=== PATIENT | female | born 1965 | race Caucasian/White ===

== ENCOUNTER 2017-04-03 08:27 | Day surgery (SDC) | payer BC ==
[2017-04-01 08:43] LABS: ABSOLUTE EOSINOPHILS # (AUTO) 0.2 10^3/uL (0.0-0.6); ABSOLUTE LYMPHOCYTES (AUTO) 2.1 10^3/uL (0.5-4.7); ABSOLUTE MONOCYTES (AUTO) 0.9 10^3/uL (0.1-1.4); ABSOLUTE NEUT (AUTO) 4.6 10^3/uL (1.7-8.2); BASOPHILS % (AUTO) 0.5 % (0-2); EOSINOPHILS % (AUTO) 2.4 % (0-6); HEMATOCRIT 35.9 % (36.0-47.0); HEMOGLOBIN 11.8 g/dL (12.0-15.5); HGB HCT DIFFERENCE -0.5; MEAN CORPUSCULAR HEMOGLOBIN 31.4 pg (27.0-33.4); MEAN CORPUSCULAR HGB CONC 32.8 g/dL (32.0-36.0); MEAN CORPUSCULAR VOLUME 96 fl (80-97); MONOCYTES % (AUTO) 11.6 % (3-13); RED BLOOD COUNT 3.75 10^6/uL (3.72-5.28); RED CELL DISTRIBUTION WIDTH 15.1 % (11.5-14.0); SEGMENTED NEUTROPHILS % (AUTO) 58.5 % (42-78); WHITE BLOOD COUNT 7.8 10^3/uL (4.0-10.5)
[2017-04-01 09:06] LABS: ANION GAP 11 (5-19); BLOOD UREA NITROGEN 17 mg/dL (7-20); CALCIUM 9.7 mg/dL (8.4-10.2); CARBON DIOXIDE 32 mmol/L (22-30); CHLORIDE 102 mmol/L (98-107); CREATININE RESULT 0.74 mg/dL (0.52-1.25); GLUCOSE 92 mg/dL (75-110); POTASSIUM 4.5 mmol/L (3.6-5.0); SODIUM 145.4 mmol/L (137-145)
--- NOTE | 2017-04-01 09:08 | EKG REPORT ---
SEVERITY:- NORMAL ECG - SINUS RHYTHM : Confirmed by: Gary Gleason 01-Apr-2017 09:07:01
[2017-04-01 09:50] LABS: APPEARANCE,URINE CLEAR; BILIRUBIN,URINE NEGATIVE (NEGATIVE); GLUCOSE, URINE NEGATIVE (NEGATIVE); KETONES,URINE TRACE mg/dL (NEGATIVE); LEUKOCYTE ESTERASE,URINE NEGATIVE (NEGATIVE); NITRITE,URINE NEGATIVE (NEGATIVE); PROTEIN,URINE 30 mg/dL (NEGATIVE); URINE SPECIFIC GRAVITY 1.036; UROBILINOGEN,URINE NEGATIVE mg/dL (<2.0)
--- NOTE | 2017-04-01 10:38 | RADIOLOGY REPORT (SQ) ---
EXAM DESCRIPTION: CHEST PA/LATERAL COMPLETED DATE/TIME: 04/01/2017 9:47 am REASON FOR STUDY: PRE OP COMPARISON: 05/02/2016 EXAM PARAMETERS: NUMBER OF VIEWS: two views TECHNIQUE: Digital Frontal and Lateral radiographic views of the chest acquired. RADIATION DOSE: NA LIMITATIONS: none FINDINGS: LUNGS AND PLEURA: No opacities, masses or pneumothorax. No pleural effusion. MEDIASTINUM AND HILAR STRUCTURES: No masses or contour abnormalities. HEART AND VASCULAR STRUCTURES: Heart normal size. No evidence for failure. BONES: No acute findings. HARDWARE: None in the chest. OTHER: No other significant finding. IMPRESSION: NO SIGNIFICANT RADIOGRAPHIC FINDING IN THE CHEST. TECHNICAL DOCUMENTATION: JOB ID: [id number] [employer]- All Rights Reserved
[~2017-04-03 08:27] MED LIST: BUPIVACAINE HCL 0.25 % INJ/PF (2.5 MG/1 ML) 30 ML VIAL ONE; CEFAZOLIN 2 GM/D5W RTU 2 GM/50 ML RTUPB IV PRN; LACTATED RINGERS 1000 ML IV PRN; LIDOCAINE 0.5% INJ-PF (5 MG/ML) 50 ML SDV SUBCUT PRN
[2017-04-03] MEDS ORDERED: ALBUTEROL SULFATE 0.083% NEB 2.5 MG/3 ML AMPUL NEB ONE (09:12)
[2017-04-03] MEDS ORDERED: FAMOTIDINE INJ/PF 20 MG/2 ML SDV IV ONE (09:12)
[2017-04-03] MEDS ORDERED: MIDAZOLAM 2 MG/2 ML INJ ONE ×2 (09:52→10:44)
[2017-04-03] MEDS ORDERED: MIDAZOLAM 2 MG/2 ML INJ IV ONE (10:00)
[2017-04-03] MEDS ORDERED: FENTANYL CITRATE INJ/PF 100 MCG/2 ML AMPUL ONE (10:43)
[2017-04-03] MEDS ORDERED: ONDANSETRON HCL INJ/PF 4 MG/2 ML SDV ONE (10:44)
[2017-04-03] MEDS ORDERED: ACETAMINOPHEN 100 ML IV ONE (10:44)
[2017-04-03] MEDS ORDERED: PROPOFOL INJ 200 MG/20 ML VIAL IV ONE (10:44)
[2017-04-03] MEDS ORDERED: PROMETHAZINE HCL INJ 25 MG/1 ML VIAL IV PRN (11:47)
[2017-04-03] MEDS ORDERED: MORPHINE SULFATE 10 MG/ML INJ IV PRN (11:47)
[2017-04-03] MEDS ORDERED: FENTANYL CITRATE INJ/PF 100 MCG/2 ML AMPUL IV PRN ×3 (11:47)
[2017-04-03] MEDS ORDERED: DIPHENHYDRAMINE HCL 50 MG/ML VIAL IV PRN (11:47)
--- NOTE | 2017-04-03 12:25 | Operative Report ---
Operative Report DATE OF SURGERY: 04/03/17 PREOPERATIVE DIAGNOSIS: Left bimalleolar ankle fracture POSTOPERATIVE DIAGNOSIS: Same OPERATION: ORIF of left bimalleolar ankle fracture SURGEON: ALONA DE LEON ANESTHESIA: GA TISSUE REMOVED OR ALTERED: None COMPLICATIONS: None ESTIMATED BLOOD LOSS: less than 20ml INTRAOPERATIVE FINDINGS: As above PROCEDURE: Patient received 2 g of Ancef in the preoperative holding area. Patient was now taken to the operating room and induced and intubated in supine position. Once the tube was secured a thigh tourniquet was applied to left extremity. Extremity was prepped and draped in a normal surgical fashion. Timeout was done identifying the left as the correct site. Esmarch was used to exsanguinate the extremity and the tourniquet was inflated to 300 mmHg. A standard lateral incision was done straight over the distal fibula. Check position was taken down to the bone and then periosteal elevator was used to expose the fracture site and elevate the periosteum at the fracture site. Both fragments were visualized and I Hohmann was used to retract the tissue. I was able to then reduce the fracture with reduction clamps. C-arm pictures were taken to confirm our reduction. I then applied the appropriate plate and make sure was in a proper alignment and with C-arm. Once I was satisfied with the proximal distal situation and the AP lateral position of the plate I proceeded then to use the drill guide and drill to drill the proximal hole in the plate in the distal fragment. I measured and placed a proper length screw. I repeated this with the distal hole in the plate to secure the proximal fragment. Reduction clamp was removed and the fracture stayed reduced. AP and lateral x-rays confirm there is no change in alignment. I then proceeded to fill in the remaining holes I drilling and using C-arm and measuring guide to applied appropriate screws. Once I was satisfied with my lateral fixation I then turned my attention to the medial malleolus. Instead of doing a incision on the medial aspect fracture reduced nicely was amenable to percutaneous screw fixation. C-arm confirmed proper reduction and therefore I used [address] percutaneously in the distal fragment into the proximal aspect of the tibia. AP and lateral C-arm pictures were taken confirming placement and reduction again. I then proceeded to use self drilling self- tapping screws after measuring appropriate length for both of them. C-arm pictures were taken again to confirm placement of the screws without any complications. I was satisfied with my reduction and fixation of the medial malleolus I then proceeded to close the 2 percutaneus wound incision medially with roseanna. At this point I proceeded to close my lateral wound with 0 Vicryl and 3-0 Vicryl and roseanna for skin. Tourniquet was let down and the dressing was applied. Xeroform 4 x 4 sterile dressing followed by Sof-Rol was applied. A posterior Ortho-Glass splint with a Ortho-Glass stirrup splint was applied and overwrapped with an Oh bandage. I held the foot in neutral and waiting until the splint hardened. At this point drapes were removed and patient was extubated and sent to PACU in stable condition.
[2017-04-03] MEDS ORDERED: DEXMEDETOMIDINE INJ 80 MCG/20 ML VIAL IV ONE (12:39)
[2017-04-03] MEDS ORDERED: MORPHINE SULFATE 10 MG/ML INJ ONE (12:39)
--- NOTE | 2017-04-03 12:40 | PDOC DISCHARGE SUMMARY ---
Discharge Summary (SDC) - Discharge Final Diagnosis: Bimalleolar ankle fracture status post ORIF Date of Surgery: 04/03/17 Discharge Date: 04/03/17 Condition: Good Treatment or Instructions: Keep extremity elevated. Wear the walking boot at all times. Toe-touch weightbearing with crutches Follow-up in 10-14 days Keep dressing dry clean and intact until follow-up visit. Prescriptions: Oxycodone HCl/Acetaminophen [Percocet 5-325 mg Tablet] 1 - 2 tab PO ASDIR PRN # 60 tablet PRN Reason: Referrals: GARCÍA KEANE MD [Primary Care Provider] - Discharge Diet: As Tolerated Respiratory Treatments at Home: Deep Breathing/Coughing Discharge Activity: No Lifting/Push/Pulling Home Care Assistance: None Needed Adaptive Devices on Discharge: Axillary Crutches Report the Following to Your Physician Immediately: Shortness of Breath, Vomiting, Increase in Pain, Yellow Skin, Fever over 101 Degrees, Unusual Bleeding, Redness, Swelling, Warmth, Increased Soreness, Drainage-Yellow, Drainage-Raymond, Drainage-Green, Drainage-Foul Smelling
[2017-04-03] MEDS ORDERED: OXYCODONE-ACETAMINOPHEN 5-325 MG TABLET PO PRN ×2 (12:43)
[2017-04-03] MEDS: FENTANYL CITRATE INJ/PF 100 MCG/2 ML AMPUL ONE ×2 (13:10→13:20)
[2017-04-03] MEDS ORDERED: IBUPROFEN INJ 800 MG/8 ML VIAL IV ONE (13:59)
[2017-04-03] MEDS ORDERED: HYDROMORPHONE HCL INJ/PF 2 MG/ML AMPULE ONE (13:59)
--- NOTE | 2017-04-03 14:13 | RADIOLOGY REPORT (SQ) ---
EXAM DESCRIPTION: NO CHG FLUORO; ANKLE LEFT COMPLETE COMPLETED DATE/TIME: 04/03/2017 1:18 pm REASON FOR STUDY: ORIF LEFT ANKLE ASSISTED WITH FLUORO IN OR COMPARISON: None. FLUOROSCOPY TIME: 1.8 minutes 3 Images saved to PACS LIMITATIONS: None. PROCEDURE: ORIF left ankle fracture. FINDINGS: 3 images obtained with fluoro with document placement of a compression plate on the distal fibula and 2 long cannulated screws through the medial malleolus. IMPRESSION: ORIF left ankle fractures. Refer to operative report for further detail. COMMENT: PQRS 6045F: Fluoroscopy time of the procedure is documented in the report. TECHNICAL DOCUMENTATION: JOB ID: [id number] [employer]- All Rights Reserved
--- NOTE | 2017-04-03 14:13 | RADIOLOGY REPORT (SQ) ---
EXAM DESCRIPTION: NO CHG FLUORO; ANKLE LEFT COMPLETE COMPLETED DATE/TIME: 04/03/2017 1:18 pm REASON FOR STUDY: ORIF LEFT ANKLE ASSISTED WITH FLUORO IN OR COMPARISON: None. FLUOROSCOPY TIME: 1.8 minutes 3 Images saved to PACS LIMITATIONS: None. PROCEDURE: ORIF left ankle fracture. FINDINGS: 3 images obtained with fluoro with document placement of a compression plate on the distal fibula and 2 long cannulated screws through the medial malleolus. IMPRESSION: ORIF left ankle fractures. Refer to operative report for further detail. COMMENT: PQRS 6045F: Fluoroscopy time of the procedure is documented in the report. TECHNICAL DOCUMENTATION: JOB ID: [id number] [employer]- All Rights Reserved
[2017-04-03 16:27] VITALS: BP 142/88
[2017-04-03] MEDS ORDERED: GLYCOPYRROLATE INJ 0.4 MG/2 ML VIAL ONE (17:28)
[2017-04-03] MEDS ORDERED: SUCCINYLCHOLINE CHLORIDE INJ 200 MG/10 ML VIAL ONE (17:28)
[2017-04-03] MEDS ORDERED: DEXAMETHASONE SOD PHOSPHATE INJ 4 MG/1 ML VIAL ONE (17:28)
[2017-04-03] MEDS ORDERED: LIDOCAINE 2% INJ-PF (20 MG/ML) 2 ML AMPUL ONE (17:28)
== END 2017-04-03 16:00 | disposition home or self-care (01) ==
LOC: OROUT 08:27
PROVIDERS: ATTEND Orthopaedic Surgery
PROC: 0QSK04Z Reposition Left Fibula with Internal Fixation Device, Open Approach (ICD-10-PCS; 2017-04-03)
PROC: 0QSH04Z Reposition Left Tibia with Internal Fixation Device, Open Approach (ICD-10-PCS; principal; 2017-04-03 10:15)
DX: S82.842D Displaced bimalleolar fracture of left lower leg, subsequent encounter for closed fracture with routine healing (principal); X58.XXXD Exposure to other specified factors, subsequent encounter; F17.210 Nicotine dependence, cigarettes, uncomplicated; M25.572 Pain in left ankle and joints of left foot
CPT/HCPCS: 93005; 36415; 85025; 81025; 80048; 81001; 73610; 71020; 93010; 27814; C1713 ×5; C1769; J2250; J1100; J3010; J2270; J1170; J0330; J2405; J2704; S0028; J0690; J0131; J1741; J3490; 01480

== ENCOUNTER 2017-04-19 10:55 | Day surgery (SDC) | payer BC ==
[2017-04-19] MEDS ORDERED: BUPIVACAINE HCL 0.25 % INJ/PF (2.5 MG/1 ML) 30 ML VIAL ONE (11:28)
[2017-04-19] MEDS ORDERED: FENTANYL CITRATE INJ/PF 100 MCG/2 ML AMPUL ONE (12:09)
[2017-04-19] MEDS ORDERED: MIDAZOLAM 2 MG/2 ML INJ ONE (12:09)
[2017-04-19] MEDS ORDERED: PROPOFOL INJ 200 MG/20 ML VIAL IV ONE (12:10)
[2017-04-19] MEDS ORDERED: CEFAZOLIN 2 GM/D5W RTU 2 GM/50 ML RTUPB IV ONE (12:13)
[2017-04-19] MEDS ORDERED: CEFAZOLIN 2 GM/D5W RTU 2 GM/50 ML RTUPB IV PRN (12:15)
[2017-04-19] MEDS ORDERED: DIPHENHYDRAMINE HCL 50 MG/ML VIAL IV PRN (13:03)
[2017-04-19] MEDS ORDERED: MORPHINE SULFATE 10 MG/ML INJ IV PRN (13:03)
[2017-04-19] MEDS ORDERED: OXYCODONE-ACETAMINOPHEN 5-325 MG TABLET PO PRN ×4 (13:03→14:31)
[2017-04-19] MEDS ORDERED: FENTANYL CITRATE INJ/PF 100 MCG/2 ML AMPUL IV PRN ×3 (13:03)
[2017-04-19] MEDS ORDERED: MEPERIDINE HCL/PF INJ 25 MG/1 ML DISP.SYRIN IV PRN (13:03)
[2017-04-19] MEDS ORDERED: PROMETHAZINE HCL INJ 25 MG/1 ML VIAL IV PRN ×2 (13:03)
[2017-04-19] MEDS ORDERED: EPHEDRINE SULFATE INJ 50 MG/1 ML AMPULE ONE (13:11)
[2017-04-19] MEDS: FENTANYL CITRATE INJ/PF 100 MCG/2 ML AMPUL ONE ×2 (14:05→14:10)
[2017-04-19] MEDS: HYDROMORPHONE HCL INJ/PF 2 MG/ML AMPULE ONE ×2 (14:22→14:32)
--- NOTE | 2017-04-19 14:31 | PDOC DISCHARGE SUMMARY ---
Discharge Summary (SDC) - Discharge Final Diagnosis: s/p Revision ORIF right medial malleolus fracture. Date of Surgery: 04/19/17 Discharge Date: 04/19/17 Treatment or Instructions: keep dresing dry clean and intact until follow up in office in 10-14 days NWB Right lower extremity Ice and elevate Prescriptions: Oxycodone HCl/Acetaminophen [Percocet 5-325 mg Tablet] 1 - 2 tab PO ASDIR PRN # 25 tablet PRN Reason: Referrals: GARCÍA KEANE MD [Primary Care Provider] - Discharge Diet: As Tolerated Respiratory Treatments at Home: Deep Breathing/Coughing Discharge Activity: No Driving, No Lifting/Push/Pulling Home Care Assistance: None Needed Adaptive Devices on Discharge: Axillary Crutches Report the Following to Your Physician Immediately: Shortness of Breath, Vomiting, Increase in Pain, Fever over 101 Degrees, Unusual Bleeding, Redness, Swelling, Warmth, Increased Soreness, Drainage-Yellow, Drainage-Raymond, Drainage- Green, Drainage-Foul Smelling
--- NOTE | 2017-04-19 14:37 | Operative Report ---
Operative Report DATE OF SURGERY: 04/19/17 PREOPERATIVE DIAGNOSIS: malreduction right medial malleolus fracture POSTOPERATIVE DIAGNOSIS: same OPERATION: revision ORIF right medial malleolus fracture SURGEON: ALONA DE LEON ANESTHESIA: GA TISSUE REMOVED OR ALTERED: none COMPLICATIONS: none ESTIMATED BLOOD LOSS: 10 mL INTRAOPERATIVE FINDINGS: as above PROCEDURE: Patient was brought to the operating room after receiving preoperative antibiotics in the holding area. The thigh tourniquet was applied to the right lower extremity and the right lower extremity was prepped and draped in normal sterile surgical fashion. Timeout was done identifying the right ankle as the correct site. Esmarch was used to exsanguinate the extremity and the tourniquet was inflated at 300 mmHg. Under C arm pictures we did a longitudinal incision over the medial malleolus and was able to expose the heads of the 2 screws have been placed previously. These were removed successfully with a screwdriver and then with a [place] elevator was able to open the fracture site and clean it successfully. I used a tenaculum to then reduced the fragment correctly and clamp it down to the bone. I need to do L to apply the clamp. I took C-arm pictures to show the AP mortise and lateral views to confirm proper reduction of the medial malleolus. At this point while it was clamped and reduced I placed to new K wires to use for guide to place my consult screws. AP and lateral x-rays show proper reduction and placement of K wires so proceeded to place the 246 mm screws that were there previously. Applied the posterior 1 first and then applied the anterior one right after that. K wires were removed and the fracture had good fixation and the screws had good fixation. X-rays were taken showing adequate acceptable reduction. Irrigation was used and then 0 Vicryl was used to approximate the subcu tissue. I used 2-0 Vicryl approximate the dermis and 4-0 Monocryl to do a subcuticular closure. Steri-Strips were applied after benzoin was applied. Local with Marcaine was injected to the surgical site. 4 x 4 dressing and soft roll was applied and then the patient was overwrapped with an Oh bandage. I proceeded out into the tourniquet down at 33 minutes. After wrapping the ankle the patient was placed in her walking boot and the patient was then awoken extubated and sent to PACU in stable condition.
--- NOTE | 2017-04-19 15:53 | RADIOLOGY REPORT (SQ) ---
EXAM DESCRIPTION: NO CHG FLUORO; ANKLE LEFT AP/LATERAL COMPLETED DATE/TIME: 04/19/2017 2:19 pm REASON FOR STUDY: ORIF LEFT ANKLE COMPARISON: None. FLUOROSCOPY TIME: 0.3 minutes Images saved to PACS LIMITATIONS: None. PROCEDURE: ORIF left ankle FINDINGS: Images were obtained with the C-arm. Forceps is seen at the medial malleolus. Hardware r emains in place from prior surgery 04/03/2017. IMPRESSION: ORIF left ankle. COMMENT: PQRS 6045F: Fluoroscopy time of the procedure is documented in the report. TECHNICAL DOCUMENTATION: JOB ID: [id number] [facility] [employer]- All Rights Reserved
--- NOTE | 2017-04-19 15:53 | RADIOLOGY REPORT (SQ) ---
EXAM DESCRIPTION: NO CHG FLUORO; ANKLE LEFT AP/LATERAL COMPLETED DATE/TIME: 04/19/2017 2:19 pm REASON FOR STUDY: ORIF LEFT ANKLE COMPARISON: None. FLUOROSCOPY TIME: 0.3 minutes Images saved to PACS LIMITATIONS: None. PROCEDURE: ORIF left ankle FINDINGS: Images were obtained with the C-arm. Forceps is seen at the medial malleolus. Hardware r emains in place from prior surgery 04/03/2017. IMPRESSION: ORIF left ankle. COMMENT: PQRS 6045F: Fluoroscopy time of the procedure is documented in the report. TECHNICAL DOCUMENTATION: JOB ID: [id number] [employer] [facility] [employer]- All Rights Reserved
[2017-04-19 16:48] VITALS: BP 140/68
[2017-04-19] MEDS ORDERED: SUCCINYLCHOLINE CHLORIDE INJ 200 MG/10 ML VIAL ONE (21:14)
[2017-04-19] MEDS ORDERED: DEXAMETHASONE SOD PHOSPHATE INJ 4 MG/1 ML VIAL ONE (21:14)
[2017-04-19] MEDS ORDERED: ONDANSETRON HCL INJ/PF 4 MG/2 ML SDV ONE (21:14)
[2017-04-19] MEDS ORDERED: LIDOCAINE 2% INJ-PF (20 MG/ML) 2 ML AMPUL ONE (21:14)
[2017-04-19] MEDS ORDERED: GLYCOPYRROLATE INJ 0.4 MG/2 ML VIAL ONE (21:14)
[2017-04-19] MEDS ORDERED: KETOROLAC TROMETHAMINE 60 MG/2 ML SDV ONE (21:14)
== END 2017-04-19 16:25 | disposition home or self-care (01) ==
LOC: OROUT 10:55
PROVIDERS: ATTEND Orthopaedic Surgery
PROC: 0QSG04Z Reposition Right Tibia with Internal Fixation Device, Open Approach (ICD-10-PCS; principal; 2017-04-19 13:00)
DX: S82.842D Displaced bimalleolar fracture of left lower leg, subsequent encounter for closed fracture with routine healing (principal); S99.912D Unspecified injury of left ankle, subsequent encounter; X58.XXXD Exposure to other specified factors, subsequent encounter; E78.00 Pure hypercholesterolemia, unspecified; I10 Essential (primary) hypertension; F17.210 Nicotine dependence, cigarettes, uncomplicated; G40.909 Epilepsy, unspecified, not intractable, without status epilepticus; E66.9 Obesity, unspecified; Z79.899 Other long term (current) drug therapy; Z79.1 Long term (current) use of non-steroidal anti-inflammatories (NSAID); Z79.891 Long term (current) use of opiate analgesic; I25.2 Old myocardial infarction; Z68.29 Body mass index [BMI] 29.0-29.9, adult
CPT/HCPCS: 81025; 73600; 27766; C1769; J2250; J1100; J3490 ×2; J1885; J3010; J1170; J0330; J2405; J2704; J0690; 01480

== ENCOUNTER 2017-09-16 02:24 | Emergency (ER) | payer BC ==
--- NOTE | 2017-09-16 02:54 | ER Document Report ---
ED General - General TRAVEL OUTSIDE OF THE [place] IN LAST 30 DAYS: No <RADHA CASTAÑEDA - Last Filed: 09/16/17 06:42> <CARMELA MOORE - Last Filed: 09/16/17 08:41> - General Stated Complaint: FALL Time Seen by Provider: 09/16/17 02:29 Notes: Patient is a 40-year-old female presents with complaint of fall. She apparently drinks 24 beers today. She says she has been drinking heavily recently. She fell today at home. This actually occurred earlier today and she developed bruising and swelling to the right side of face. Family found her poorly responsive and therefore they brought her to the ED. She complains of pain mainly of her face and eye on the right side. She does have a headache. She denies pain anywhere else however she is very intoxicated at this time. When asked if she is on blood thinning medications she does not seem to know. History is limited due to the patient's significant alcohol intoxication. (RADHA CASTAÑEDA) - Related Data Allergies/Adverse Reactions: No Known Drug Allergies Allergy (Mild, Verified 04/19/17 12:01) Past Medical History - Social History Smoking Status: Unknown if Ever Smoked Frequency of alcohol use: Heavy Drug Abuse: Other - unknown Family History: Reviewed & Not Pertinent - Past Medical History Cardiac Medical History: Reports: Hx Coronary Artery Disease, Hx Heart Attack - 2007, CARDIAC CATH, NO STENTS, Hx Hypercholesterolemia, Hx Hypertension - ON MEDS Pulmonary Medical History: Denies: Hx Asthma, Hx Bronchitis, Hx COPD, Hx Pneumonia Neurological Medical History: Reports: Hx Seizures - SEIZURE FROM BRAIN TRAUMA 2016. Denies: Hx Cerebrovascular Accident - BRAIN BLEED 2017 - R/T FALL Musculoskeltal Medical History: Denies Hx Arthritis Psychiatric Medical History: Reports: Hx Depression Past Surgical History: Reports: Hx Appendectomy - Immunizations Immunizations up to date: Yes Hx Diphtheria, Pertussis, Tetanus Vaccination: Yes <RADHA CASTAÑEDA - Last Filed: 09/16/17 06:42> Review of Systems - Review of Systems -: Yes ROS unobtainable due to patient's medical condition - Patient is severly intoxicated with ETOH <RADHA CASTAÑEDA - Last Filed: 09/16/17 06:42> Physical Exam <RADHA CASTAÑEDA - Last Filed: 09/16/17 06:42> <CARMELA MOORE - Last Filed: 09/16/17 08:41> - Vital signs Vitals: Resp Pulse Ox 20 94 09/16/17 02:41 09/16/17 02:41 - Notes Notes: General Appearance: Well nourished, alert, cooperative, no acute distress, moderate obvious discomfort. Vitals: reviewed, See vital signs table. Head: Bruising around the right eye with right eye swollen shut. Bruising along the right zygomatic arch and into the right forehead. Patient is able to open and close her mouth without difficulty. Eyes: Left eye exam is completely normal. Patient's right eye is swollen shut but I am unable to a open enough to see the eye itself. The patient's right eyeballs not come on a kids not proptotic. Patient has a normal shape and appearance to the pupil and the pupils equal in size in comparison to the left eye and it appears reactive. Patient will not follow commands and therefore it is difficult for me to determine if extraocular motion is intact at this time. Mouth: No decreasd moisture Throat: No tonsillar inflammation, No airway obstruction, No lymphadenopathy Neck: Supple, no neck tenderness, No thyromegaly Back: No pain to palpation of thoracic or lumbar spine. Lungs: No wheezing, No rales, No rhonci, No accessory muscle use, good air exchange bilaterally. Heart: Normal rate, Regular rythm, No murmur, no rub Abdomen: Normal BS, soft, No rigidity, No abdominal tenderness, No guarding, no rebound, no abdominal masses, no organomegaly Extremities: strength 5/5 in all extremities, good pulses in all extremities, no swelling or tenderness in the extremities, no edema. Skin: warm, dry, appropriate color, no rash Neuro: Patient smells heavily of alcohol and has slurred speech consistent with alcohol intoxication. Patient has symmetric facial movement. She is able move all 4 extremities. I do not appreciate he obvious focal neurologic deficit; however, patient is very intoxicated and unable to follow commands for me to do a full appropriate neurologic exam. Ragland Coma Scale is 13. (RADHA CASTAÑEDA) Course - Laboratory Result Diagrams: 09/16/17 03:05 09/16/17 03:05 <RADHA CASTAÑEDA - Last Filed: 09/16/17 06:42> - Laboratory Result Diagrams: 09/16/17 03:05 09/16/17 03:05 <CARMELA MOORE - Last Filed: 09/16/17 08:41> - Re-evaluation Re-evalutation: 09/16/17 03:58 In reviewing the patient's CT scan of the head she does have an intrathecal bleed with some intraventricular extension. I reevaluate the patient. She is actually more lucid now as she is time sober up some. She is now able to tell me that she takes Keppra for her seizures. She is not totally convinced that she took it today and therefore we will give her a dose of Keppra to the IV. I did explain to her that she does have a brain bleed and she is going to [facility] and she is understanding of this. I did call and speak with Dr. Dolan, [facility] surgeon, who agrees to accept the patient. Patient was given a liter bolus of IV fluids before bleeding was seen on CT imaging because blood pressure was systolically at 90 most likely related to the large amount of alcohol intoxication and she had earlier today. 09/16/17 04:01 09/16/17 06:42 On reevaluation patient continues to be doing well. She is sleeping but easily arousable. Her Ragland Coma Scale is now 15. She has no complaints at this time. Patient continues to be medically stable for transfer. (RADHA CASTAÑEDA) 09/16/17 08:41 Patient is alert, appropriate, nonfocal. Stable for transport. (CARMELA MOORE) - Vital Signs Vital signs: Temp Pulse Resp BP Pulse Ox 97.5 F 63 18 103/66 96 09/16/17 03:01 09/16/17 03:01 09/16/17 08:01 09/16/17 08:01 09/16/17 08:01 - Laboratory Laboratory results interpreted by me: 09/16/17 09/16/17 03:05 03:05 RDW 15.8 H Plt Count 149 L Seg Neutrophils % 82.4 H Lymphocytes % 12.3 L Sodium 148.1 H Discharge <RADHA CASTAÑEDA - Last Filed: 09/16/17 06:42> <CARMELA MOORE - Last Filed: 09/16/17 08:41> - Discharge Clinical Impression: Intracerebral bleed Qualifiers: Intracerebral hemorrhage etiology: traumatic Encounter type: initial encounter Laterality: unspecified laterality Loss of consciousness presence/duration: with LOC of unspecified duration Qualified Code(s): S06.369A - Traumatic hemorrhage of cerebrum, unspecified, with loss of consciousness of unspecified duration, initial encounter Facial contusion Qualifiers: Encounter type: initial encounter Qualified Code(s): S00.83XA - Contusion of other part of head, initial encounter Condition: Stable Disposition: [facility] Referrals: GARCÍA KEANE MD [Primary Care Provider] - Follow up as needed
[2017-09-16 03:24] LABS: ABSOLUTE LYMPHOCYTES (AUTO) 1.2 10^3/uL (0.5-4.7); ABSOLUTE MONOCYTES (AUTO) 0.5 10^3/uL (0.1-1.4); ABSOLUTE NEUT (AUTO) 8.1 10^3/uL (1.7-8.2); BASOPHILS % (AUTO) 0.2 % (0-2); EOSINOPHILS % (AUTO) 0.2 % (0-6); HEMATOCRIT 36.7 % (36.0-47.0); HEMOGLOBIN 12.1 g/dL (12.0-15.5); LYMPHOCYTES % (AUTO) 12.3 % (13-45); MEAN CORPUSCULAR VOLUME 97 fl (80-97); MONOCYTES % (AUTO) 4.9 % (3-13); PLATELET COUNT 149 10^3/uL (150-450); RED BLOOD COUNT 3.78 10^6/uL (3.72-5.28); RED CELL DISTRIBUTION WIDTH 15.8 % (11.5-14.0); SEGMENTED NEUTROPHILS % (AUTO) 82.4 % (42-78); TOTAL CELLS COUNTED % (AUTO) 100 %; WHITE BLOOD COUNT 9.8 10^3/uL (4.0-10.5)
[2017-09-16 03:35] LABS: ALCOHOL 288 mg/dL (NONE DETECTED); ANION GAP 15 (5-19); BLOOD UREA NITROGEN 18 mg/dL (7-20); CARBON DIOXIDE 26 mmol/L (22-30); CHLORIDE 107 mmol/L (98-107); GLUCOSE 99 mg/dL (75-110); POTASSIUM 4.6 mmol/L (3.6-5.0); SODIUM 148.1 mmol/L (137-145)
[2017-09-16] MEDS ORDERED: LEVETIRACETAM 500 MG/NACL-ISO 500 MG/100 ML RTUPB IV ONE (03:57)
[2017-09-16] MEDS ORDERED: NORMAL SALINE 1000 ML 1,000 ML IV ONE (04:01)
[2017-09-16 04:08] LABS: INTERNATIONAL RATION (INR) 0.93
[2017-09-16 04:09] LABS: PARTIAL THROMBOPLASTIN TIME 28.5 SEC (23.5-35.8)
--- NOTE | 2017-09-16 04:13 | RADIOLOGY REPORT (SQ) ---
EXAM DESCRIPTION: CT HEAD WITHOUT CLINICAL HISTORY: Trauma/injury COMPARISON: None available TECHNIQUE: Axial CT of the head obtained from the skull apex to the skull base without contrast. FINDINGS: Acute intraventricular hemorrhage involving the right lateral ventricle, third ventricle, and fourth ventricle. Acute subarachnoid hemorrhage involving the left cerebellopontine angle and Meckel's cave. Acute extra-axial hemorrhage along the left lateral convexity likely representing an acute subdural hematoma measuring 7 mm in greatest width with effacement of the adjacent sulcal spaces. No significant midline shift at this time. Acute extra-axial hemorrhage along the right midline falx likely representing subdural hematoma measuring 3 mm in greatest width. Acute subdural hemorrhage layering along the right lateral convexity measuring 4 mm in greatest width. Remote encephalomalacia involving the high frontal lobes . Right orbital fracture incompletely visualized on this study. Please see facial bone CT performed same day. No skull fracture identified. Degenerative the right scalp soft tissues. DLP: 990.56 mGy-cm IMPRESSION: 1. Acute intraventricular hemorrhage involving the right lateral ventricle, third ventricle, and fourth ventricle. No definite hydrocephalus at this time. 2. Acute subarachnoid hemorrhage involving the left cerebellopontine angle. 3. Acute left lateral convexity subdural hematoma measuring 7 mm in greatest width with effacement of the adjacent sulcal spaces. No significant midline shift at this time. There is also acute subdural hemorrhage layering along the right midline falx measuring 3 mm in greatest width. 4. Acute subdural hematoma measuring 4 mm in greatest width along the right lateral convexity. Urgent finding reported to Dr. Henderson at 09/16/2017 3:11 AM CDT This exam was performed according to our departmental dose-optimization program, which includes automated exposure control, adjustment of the mA and/or kV according to patient size and/or use of iterative reconstruction technique.
--- NOTE | 2017-09-16 04:16 | RADIOLOGY REPORT (SQ) ---
EXAM DESCRIPTION: CT CERVICAL SPINE WITHOUT CLINICAL HISTORY: trauma COMPARISON: None available TECHNIQUE: Axial CT of the cervical spine obtained without contrast. FINDINGS: Stranding of the cervical lordosis is likely secondary to patient positioning. The atlantoaxial, atlantodental, and occipitoatlantal intervals are preserved. No fracture identified. Vertebral body height preserved. Prevertebral soft tissues are unremarkable. Mild multilevel loss of intervertebral disc height with endplate spondylosis, uncovertebral spurring, and facet arthropathy. No definite central canal nor neural foraminal narrowing. Degenerative change of the atlantodental articulation. Visualized skull base is intact. No fracture of the visualized facial bones. Visualized mastoid air cells and paranasal sinuses are well aerated. Visualization of intraventricular hemorrhage is described on CT of the head performed same day. Visualized thyroid is unremarkable. No cervical lymphadenopathy. No pneumothorax in the visualized lung apices. DLP: 548.28 mGy-cm IMPRESSION: 1. No acute fracture or subluxation of the cervical spine. This exam was performed according to our departmental dose-optimization program, which includes automated exposure control, adjustment of the mA and/or kV according to patient size and/or use of iterative reconstruction technique.
--- NOTE | 2017-09-16 04:20 | RADIOLOGY REPORT (SQ) ---
EXAM DESCRIPTION: CT FACIAL AREA WITHOUT CLINICAL HISTORY: trauma/injury COMPARISON: None available TECHNIQUE: Axial CT of the facial bone obtained without contrast. Coronal and sagittal reformatted images available. DLP: 541.43 mGy-cm FINDINGS: Orbits: Inferior orbital wall blowout fracture. Mild herniation of extraconal fat. Possible involvement of the inferior rectus muscle. Left orbit is intact. Intraorbital contents: The globes are intact. No abnormalities of the left intraorbital contents. Nasal bones: Left nasal bone fracture with minimal leftward displacement. Maxilla: The maxillary hard palate is intact. Maxillary antral marino are intact. Sinuses: Minimal posttraumatic fluid within the right maxillary sinus. Zygomatic processes: Intact Pterygoid plates: Intact Mandible: Intact. No mandibular condylar dislocation. Skull base/cervical spine: Visualized portions of the skull base and cervical spine are intact. Visualized mastoid air cells are well aerated. Subcutaneous soft tissues: Extensive contusion/hematoma in the right frontal and right preseptal periorbital subcutaneous soft tissues. Neck soft tissues: No definite abnormality involving the nasopharynx, oropharynx, or hypopharynx. Fossa of Rosenmuller are clear. Parotid glands and submandibular glands are unremarkable. No cervical lymphadenopathy. IMPRESSION: 1. Mildly displaced blowout fracture of the right inferior orbital floor with mild herniation of orbital fat. Possible involvement of the right inferior rectus muscle. 2. Minimally displaced left nasal bone fracture. This exam was performed according to our departmental dose-optimization program, which includes automated exposure control, adjustment of the mA and/or kV according to patient size and/or use of iterative reconstruction technique.
[2017-09-16 08:52] VITALS: BP 111/65
== END 2017-09-16 08:52 | disposition short-term general hospital (02) ==
LOC: ER 02:24
DX: S06.349A Traumatic hemorrhage of right cerebrum with loss of consciousness of unspecified duration, initial encounter (principal); S02.31XA Fracture of orbital floor, right side, initial encounter for closed fracture; S02.2XXA Fracture of nasal bones, initial encounter for closed fracture; W19.XXXA Unspecified fall, initial encounter; Y92.009 Unspecified place in unspecified non-institutional (private) residence as the place of occurrence of the external cause; F10.129 Alcohol abuse with intoxication, unspecified; I25.10 Atherosclerotic heart disease of native coronary artery without angina pectoris; I10 Essential (primary) hypertension; I25.2 Old myocardial infarction; R56.9 Unspecified convulsions; Z79.899 Other long term (current) drug therapy
CPT/HCPCS: 99285; 96361; 96374; 36415; 80307; 85025; 85610; 85730; 80048; 70450; 70486; 72125; J7030; J1953

== ENCOUNTER 2018-06-16 11:33 | Emergency (ER) | payer BC ==
[2018-06-16] MEDS ORDERED: ACETAMINOPHEN 325 MG TABLET PO ONE ×2 (12:12→12:13)
--- NOTE | 2018-06-16 12:35 | RADIOLOGY REPORT (SQ) ---
EXAM DESCRIPTION: WRIST LEFT 3 VIEWS COMPLETED DATE/TIME: 06/16/2018 12:25 pm REASON FOR STUDY: positive deformity COMPARISON: None. NUMBER OF VIEWS: Three views. TECHNIQUE: AP, lateral, and oblique radiographic images acquired of the left wrist. LIMITATIONS: None. FINDINGS: MINERALIZATION: Normal. BONES: Comminuted fracture of the distal radius with impaction and 1/2 shaft width dorsal displacemen t. Articular surface appears intact. SOFT TISSUES: No foreign body. OTHER: No other significant finding. IMPRESSION: Fracture of the distal radius. TECHNICAL DOCUMENTATION: JOB ID: [id number] [employer]- All Rights Reserved Reading location - IP/workstation name: [email or web address]
[2018-06-16] MEDS ORDERED: PROPOFOL INJ 200 MG/20 ML VIAL IV ONE (13:30)
--- NOTE | 2018-06-16 13:32 | ER Document Report ---
ED Hand/Wrist Injury - General Chief Complaint: Wrist Injury Stated Complaint: FALL/LEFT WRIST PAIN, SWELLING Time Seen by Provider: 06/16/18 13:22 Primary Care Provider: GARCÍA KEANE MD [Primary Care Provider] - Follow up as needed Mode of Arrival: Ambulatory Information source: Patient Notes: 52-year-old female presents emergency department with complaints of left wrist pain and swelling. Patient states that she fell onto her left wrist 2 days ago. She states that she began having some swelling and pain afterwards. Patient has not taken any medication for symptom relief. Patient states that the pain is worsening. She denies any numbness, tingling, discoloration of her fingers. She states that she follows up with Dr. Tang for lower extremity issues. TRAVEL OUTSIDE OF THE [place] IN LAST 30 DAYS: No - HPI Injury to: Wrist Onset: Other - 2 days Where: Home Timing: Constant Quality of pain: Throbbing Severity: Moderate Context: Fall - Related Data Allergies/Adverse Reactions: No Known Drug Allergies Allergy (Mild, Verified 06/16/18 11:35) Past Medical History - General Information source: Patient - Social History Smoking Status: Current Every Day Smoker Chew tobacco use (# tins/day): No Frequency of alcohol use: Heavy Drug Abuse: None Family History: Reviewed & Not Pertinent Patient has suicidal ideation: No Patient has homicidal ideation: No - Past Medical History Cardiac Medical History: Reports: Hx Coronary Artery Disease, Hx Heart Attack - 2007, CARDIAC CATH, NO STENTS, Hx Hypercholesterolemia, Hx Hypertension - ON MEDS Pulmonary Medical History: Denies: Hx Asthma, Hx Bronchitis, Hx COPD, Hx Pneumonia Neurological Medical History: Reports: Hx Seizures - SEIZURE FROM BRAIN TRAUMA 2016. Denies: Hx Cerebrovascular Accident - BRAIN BLEED 2017 - R/T FALL Renal/ Medical History: Denies: Hx Peritoneal Dialysis Musculoskeletal Medical History: Denies Hx Arthritis Psychiatric Medical History: Reports: Hx Depression Past Surgical History: Reports: Hx Appendectomy, Hx Orthopedic Surgery - bilateral ankles - Immunizations Immunizations up to date: Yes Hx Diphtheria, Pertussis, Tetanus Vaccination: Yes Review of Systems - Review of Systems Constitutional: No symptoms reported EENT: No symptoms reported Cardiovascular: No symptoms reported Respiratory: No symptoms reported Gastrointestinal: No symptoms reported Genitourinary: No symptoms reported Female Genitourinary: No symptoms reported Musculoskeletal: Other - Wrist pain Skin: No symptoms reported Hematologic/Lymphatic: No symptoms reported Neurological/Psychological: No symptoms reported -: Yes All other systems reviewed and negative Physical Exam - Vital signs Vitals: Temp Pulse Resp BP Pulse Ox 98.3 F 88 18 126/72 H 99 06/16/18 12:02 06/16/18 12:02 06/16/18 12:02 06/16/18 12:06/16/18 12:02 - Notes Notes: PHYSICAL EXAMINATION: GENERAL: Well-appearing, well-nourished and in no acute distress. HEAD: Atraumatic, normocephalic. EYES: Pupils equal round and reactive to light, extraocular movements intact, conjunctiva are normal. ENT: Nares patent, oropharynx clear without exudates. Moist mucous membranes. NECK: Normal range of motion, supple without lymphadenopathy LUNGS: Breath sounds clear to auscultation bilaterally and equal. No wheezes rales or rhonchi. HEART: Regular rate and rhythm without murmurs ABDOMEN: Soft, nontender, nondistended abdomen. No guarding, no rebound. No masses appreciated. Female : deferred Musculoskeletal: Left wrist swelling and tenderness to palpation. 2+ radial pulse. Patient is able to move all 5 digits. Capillary refill 2+. NEUROLOGICAL: Cranial nerves grossly intact. Normal speech, normal gait. Normal sensory, motor exams PSYCH: Normal mood, normal affect. SKIN: Warm, Dry, normal turgor, no rashes or lesions noted. Course - Re-evaluation Re-evalutation: 06/16/18 14:53 Patient sedated with propofol. Given fentanyl for pain. The left wrist was reduced. Patient splinted with a sugar tong splint. Patient had 2+ radial pulse and capillary refill less than 2 seconds. She was neurovascularly intact status post splint placement. She follows up with Dr. Tang. I instructed the patient to follow-up with him this week, to continue taking her medication prescribed as directed, and to return for worsening symptoms. Patient is agreeable with the plan of care. 06/16/18 14:54 - Vital Signs Vital signs: Temp Pulse Resp BP Pulse Ox 98.3 F 88 18 126/72 H 99 06/16/18 12:02 06/16/18 12:02 06/16/18 12:02 06/16/18 12:02 06/16/18 12:02 Procedures - Conscious Sedation Conscious sedation Time completed: 14:30 Consent obtained: Yes Indication: wrist reduction Prior complications: Procedural sedation Pt with a mild systemic disease.: P2. - ASA Classification. Airway Evaluation: Normal anatomy Mallampati Classification: Class 2 Used during procedure: Suction available, IV access obtained, Pulse ox on pt., security monitor on pt. Medications administered: Fentanyl I personally performed/intraservice time: Sedation Complications: No - Joint Reduction/Fracture Care Left Wrist Time completed: 14:30 Consent obtained: Yes Conscious sedation: Yes Pre-procedure NV exam: Yes Fracture: Closed Post-procedure NV exam: Yes Post-reduction x-ray: Joint reduced Reduction attempts: 2 Complications: No Discharge - Discharge Clinical Impression: Distal radius fracture, left Qualifiers: Encounter type: initial encounter Fracture type: closed Fracture morphology: unspecified fracture morphology Qualified Code(s): S52.502A - Unspecified fracture of the lower end of left radius, initial encounter for closed fracture Condition: Good Disposition: HOME, SELF-CARE Instructions: Fractured Radius ([facility]) Prescriptions: Hydrocodone/Acetaminophen [[place] 5-325 Tablet] 1 each PO Q4 PRN #5 tablet PRN Reason: Referrals: GARCÍA KEANE MD [Primary Care Provider] - Follow up as needed RAMON TANG MD [ACTIVE STAFF] - Follow up as needed
[2018-06-16] MEDS ORDERED: FENTANYL CITRATE INJ/PF 100 MCG/2 ML AMPUL IV ONE ×2 (13:35→14:59)
[2018-06-16] MEDS ORDERED: FENTANYL CITRATE INJ/PF 100 MCG/2 ML AMPUL ONE (14:38)
--- NOTE | 2018-06-16 15:23 | RADIOLOGY REPORT (SQ) ---
EXAM DESCRIPTION: WRIST LEFT 2 VIEWS COMPLETED DATE/TIME: 06/16/2018 3:03 pm REASON FOR STUDY: POST REDUCTION COMPARISON: Earlier the same day. NUMBER OF VIEWS: Four views. TECHNIQUE: 2 sets of AP and lateral radiographic images acquired of the left wrist. LIMITATIONS: None. FINDINGS: Improved alignment of previously described fracture of the radius on the 3rd and 4th expos ure. IMPRESSION: Successful closed reduction. TECHNICAL DOCUMENTATION: JOB ID: [id number] [employer]- All Rights Reserved Reading location - IP/workstation name: [email or web address]
[2018-06-16 15:45] VITALS: BP 132/82
== END 2018-06-16 15:30 | disposition home or self-care (01) ==
LOC: ER 11:33
PROC: 0PSJXZZ Reposition Left Radius, External Approach (ICD-10-PCS; principal; 2018-06-16)
DX: S52.502A Unspecified fracture of the lower end of left radius, initial encounter for closed fracture (principal); M25.532 Pain in left wrist; M79.89 Other specified soft tissue disorders; W19.XXXA Unspecified fall, initial encounter; F17.200 Nicotine dependence, unspecified, uncomplicated; I25.10 Atherosclerotic heart disease of native coronary artery without angina pectoris; I10 Essential (primary) hypertension; Z79.899 Other long term (current) drug therapy
CPT/HCPCS: 96376; 99283; 99153; 99152; 96374; 73100; 73110; 25605; J3010; J2704

== ENCOUNTER 2019-01-15 09:14 | Emergency (ER) | payer BC ==
--- NOTE | 2019-01-15 10:08 | PSYCHOLOGICAL NOTE ---
Psych Note - Psych Note Date seen by psych provider: 01/15/19 Time seen by psych provider: 09:30 Psych Note: Reason For Consult:Psychosis Consent Permissions:none provided Patient is observed trying to catch things in the air upon clinician initially entering the room. Patient had to be redirected to her room after exiting the bathroom and was observed tearing paper towel into pieces and throwing him to the air like confetti. Patient has difficulty with evaluation. She is easily distracted and unable to sustain extended conversation. Patient reports she has PTSD and has been inpatient "a couple times." When asked about history of mental health treatment she states "used to do therapy;" she is unable to provide further details. Chart review: Patient was seen 05/02/2016 where the patient's disclosed the patient has alcohol use disorder, severe with seizures when in withdrawal Neurological Medical History: Reports: Hx Seizures - SEIZURE FROM BRAIN TRAUMA 2006. Denies: Hx Cerebrovascular Accident - BRAIN BLEED 2006 - R/T FALL 09/16/2017 Intracerebral bleed Intracerebral hemorrhage etiology: traumatic Encounter type: initial encounter Laterality: unspecified laterality Loss of consciousness presence/duration: with LOC of unspecified duration Qualified Code(s): S06.369A - Traumatic hemorrhage of cerebrum, unspecified, with loss of consciousness of unspecified duration, initial encounter Patient is alert and orientated to person. Mood is euthymic with congruent affect. Patient denies suicidal and homicidal ideation. Paranoid delusions are noted. Thought processes are disorganized and unable to sustain extended conversation. Patient is demonstrating behaviors of responding to internal stimuli i.e. trying to catch things in the air, easily lose track of conversation and stares off to the side etc. Conversational speech is within normal rate, tone and prosody. Intellectual abilities appear to be within the average range. Attention and concentration are poor. Insight, judgment, impulse control are poor. Diagnosis Depression per history Alcohol Use Disorder per history with reported withdrawal seizures Medication recommendations per [facility]'s contracted psychiatrist Dr. Evelyne CANNON are as follows Continue home medications Impression\\plan: Patient is recommended for IVC. Patient currently presents altered mental status and responding to internal stimuli. Is currently unclear if the patient is under the influence. Patient does have a history of both alcoholism and traumatic brain injury. Dr. Roberts was consulted to care management of this patient; attending physicians in agreement with recommendations and disposition.
[2019-01-15 10:25] LABS: ABSOLUTE LYMPHOCYTES (AUTO) 1.8 10^3/uL (0.5-4.7); ABSOLUTE MONOCYTES (AUTO) 1.4 10^3/uL (0.1-1.4); ABSOLUTE NEUT (AUTO) 8.2 10^3/uL (1.7-8.2); BASOPHILS % (AUTO) 0.4 % (0-2); EOSINOPHILS % (AUTO) 0.4 % (0-6); LYMPHOCYTES % (AUTO) 15.6 % (13-45); MEAN CORPUSCULAR HGB CONC 33.4 g/dL (32.0-36.0); MEAN CORPUSCULAR VOLUME 93 fl (80-97); MONOCYTES % (AUTO) 11.9 % (3-13); PLATELET COUNT 249 10^3/uL (150-450); RED CELL DISTRIBUTION WIDTH 15.8 % (11.5-14.0); SEGMENTED NEUTROPHILS % (AUTO) 71.7 % (42-78); TOTAL CELLS COUNTED % (AUTO) 100 %; WHITE BLOOD COUNT 11.5 10^3/uL (4.0-10.5)
[2019-01-15 10:33] LABS: APPEARANCE,URINE CLOUDY; BILIRUBIN,URINE NEGATIVE (NEGATIVE); COLOR,URINE YELLOW; GLUCOSE, URINE NEGATIVE (NEGATIVE); KETONES,URINE 20 mg/dL (NEGATIVE); LEUKOCYTE ESTERASE,URINE SMALL (NEGATIVE); NITRITE,URINE POSITIVE (NEGATIVE); PROTEIN,URINE 100 mg/dL (NEGATIVE); URINE SPECIFIC GRAVITY 1.025; UROBILINOGEN,URINE NEGATIVE mg/dL (<2.0)
[2019-01-15 10:44] LABS: ALBUMIN 4.8 g/dL (3.5-5.0); ALKALINE PHOSPHATASE 94 U/L (38-126); ANION GAP 13 (5-19); ASPARTATE AMINO TRANSFERASE 122 U/L (14-36); BILIRUBIN,DIRECT 0.4 mg/dL (0.0-0.4); BILIRUBIN,TOTAL 0.8 mg/dL (0.2-1.3); BLOOD UREA NITROGEN 27 mg/dL (7-20); CALCIUM 10.1 mg/dL (8.4-10.2); CARBON DIOXIDE 24 mmol/L (22-30); CHLORIDE 101 mmol/L (98-107); GLUCOSE 104 mg/dL (75-110); POTASSIUM 3.8 mmol/L (3.6-5.0); TOTAL PROTEIN 7.4 g/dL (6.3-8.2)
[2019-01-15 10:45] LABS: ACETAMINOPHEN < 10 ug/mL (10-30); ALCOHOL < 10 mg/dL (NONE DETECTED); SALICYLATE < 1.0 mg/dL (2.0-20.0)
[2019-01-15 10:47] LABS: URINE AMPHETAMINES SCREEN NEGATIVE; URINE BARBITURATES SCREEN NEGATIVE; URINE BENZODIAZEPINES SCREEN NEGATIVE; URINE COCAINE SCREEN NEGATIVE; URINE MARIJUANA (THC) SCREEN NEGATIVE; URINE METHADONE SCREEN NEGATIVE; URINE PHENCYCLIDINE SCREEN NEGATIVE
[2019-01-15] MEDS: LEVETIRACETAM 500 MG TABLET PO SCH ×2 (10:54→18:30)
[2019-01-15] MEDS: VENLAFAXINE HCL 75 MG CAP.SR.24H PO SCH (10:54)
[2019-01-15] MEDS: ATORVASTATIN CALCIUM 10 MG TABLET PO SCH (10:56)
--- NOTE | 2019-01-15 14:18 | EKG REPORT ---
SEVERITY:- OTHERWISE NORMAL ECG - SINUS RHYTHM LEFT AXIS DEVIATION : Confirmed by: Gary Gleason 15-Jan-2019 14:18:11
--- NOTE | 2019-01-15 16:16 | ER Document Report ---
Entered by JEAN ANDRES SCRIBE 01/15/19 1000 Acting as scribe for:IVAN LOZA DO ED Psych Disorder / Suicide - General Stated Complaint: PSYCH Time Seen by Provider: 01/15/19 09:28 Primary Care Provider: GARCÍA KEANE MD [Primary Care Provider] - Follow up as needed Notes: Patient is a 53 year old female that presents to the emergency department today with complaints of being altered. Patient was found outside in the rain rolling around in the grass according to EMS. Patient is a poor historian, history is limited. Patient has no complaints. TRAVEL OUTSIDE OF THE [place] IN LAST 30 DAYS: No - Related Data Allergies/Adverse Reactions: No Known Drug Allergies Allergy (Mild, Verified 08/22/18 08:29) Past Medical History - General Information source: Patient, [facility] Records - Social History Smoking Status: Unknown if Ever Smoked Family History: Reviewed & Not Pertinent - Past Medical History Cardiac Medical History: Reports: Hx Coronary Artery Disease, Hx Heart Attack - 2007, CARDIAC CATH, NO STENTS, Hx Hypercholesterolemia, Hx Hypertension - ON MEDS Pulmonary Medical History: Reports: Hx Pneumonia Neurological Medical History: Reports: Hx Seizures - SEIZURE FROM BRAIN TRAUMA 2017 Psychiatric Medical History: Reports: Hx Depression Past Surgical History: Reports: Hx Appendectomy, Hx Orthopedic Surgery - bilateral ankles - Immunizations Immunizations up to date: Yes Hx Diphtheria, Pertussis, Tetanus Vaccination: Yes Review of Systems - Review of Systems Constitutional: No symptoms reported EENT: No symptoms reported Cardiovascular: No symptoms reported Respiratory: No symptoms reported Gastrointestinal: No symptoms reported Genitourinary: No symptoms reported Female Genitourinary: No symptoms reported Musculoskeletal: No symptoms reported Skin: No symptoms reported Hematologic/Lymphatic: No symptoms reported Neurological/Psychological: No symptoms reported -: Yes All other systems reviewed and negative Physical Exam - Vital signs Vitals: Temp Pulse Resp BP Pulse Ox 98.7 F 88 14 134/74 H 98 01/15/19 09:44 01/15/19 09:44 01/15/19 09:44 01/15/19 09:44 01/15/19 09:44 Course - Re-evaluation Re-evalutation: 01/15/19 16:11 Patient is a 53-year-old female who was found rolling around on the lawn talking about people that were not there. In the emergency department, patient is asking me about a girl that recently but then loses her train of thought. Patient with urinary tract infection but stable vitals and blood work. This does not seem to be the cause of her psychosis today. Patient will be held for mental health evaluation. She is been restarted on her home medication of Effexor, Keppra, and Crestor. - Vital Signs Vital signs: Temp Pulse Resp BP Pulse Ox 98.7 F 88 14 134/74 H 98 01/15/19 09:44 01/15/19 09:44 01/15/19 09:44 01/15/19 09:44 01/15/19 09:44 - Laboratory Result Diagrams: 01/15/19 10:00 01/15/19 10:00 Laboratory results interpreted by me: 01/15/19 01/15/19 01/15/19 09:34 10:00 10:00 WBC 11.5 H RDW 15.8 H BUN 27 H AST 122 H Urine Protein 100 H Urine Ketones 20 H Urine Blood MODERATE H Urine Nitrite POSITIVE H Ur Leukocyte Esterase SMALL H Salicylates < 1.0 L Acetaminophen < 10 L - EKG Interpretation by Me EKG shows normal: Sinus rhythm Rate: Normal Discharge - Discharge Clinical Impression: Acute psychosis UTI (urinary tract infection) Qualifiers: Urinary tract infection type: site unspecified Hematuria presence: with hematuria Qualified Code(s): N39.0 - Urinary tract infection, site not specified; R31.9 - Hematuria, unspecified Condition: Stable Disposition: OTHER Referrals: GARCÍA KEANE MD [Primary Care Provider] - Follow up as needed I personally performed the services described in the documentation, reviewed and edited the documentation which was dictated to the scribe in my presence, and it accurately records my words and actions.
[2019-01-15] MEDS: CEPHALEXIN 500 MG CAPSULE PO SCH (18:30)
[2019-01-15] MEDS ORDERED: ACETAMINOPHEN 325 MG TABLET PO ONE (23:58)
[2019-01-16] MEDS ORDERED: NICOTINE 14 MG/24 HR PATCH.TD24 TD ONE (03:04)
[2019-01-16] MEDS ORDERED: HALOPERIDOL LACTATE INJ 5 MG/1 ML VIAL IM ONE (05:39)
--- NOTE | 2019-01-16 05:41 | ER Document Report ---
Doctor's Note Notes: Patient becoming increasingly difficult to redirect and has now been entering other patient's rooms and looking for her boyfriend who is not pleasantly in the hospital. She comes agitated and is awakening other patients. I reviewed previous notes and the patient the psychiatric note. I will give her a dose of Haldol to help keep her calm.
[2019-01-16] MEDS: LEVETIRACETAM 500 MG TABLET PO SCH ×2 (09:26→18:42)
[2019-01-16] MEDS: ATORVASTATIN CALCIUM 10 MG TABLET PO SCH (09:27)
[2019-01-16] MEDS: VENLAFAXINE HCL 75 MG CAP.SR.24H PO SCH (09:27)
[2019-01-16] MEDS: CEPHALEXIN 500 MG CAPSULE PO SCH ×3 (09:27→18:42)
--- NOTE | 2019-01-16 18:25 | PSYCHOLOGICAL NOTE ---
Psych Note - Psych Note Date seen by psych provider: 01/16/19 Psych Note: Reason For Consult:Psychosis Consent Permissions:none provided Patient is observed trying to catch things in the air upon clinician initially entering the room. Patient had to be redirected to her room after exiting the bathroom and was observed tearing paper towel into pieces and throwing him to the air like confetti. Patient has difficulty with evaluation. She is easily distracted and unable to sustain extended conversation. Patient reports she has PTSD and has been inpatient "a couple times." When asked about history of mental health treatment she states "used to do therapy;" she is unable to provide further details. Diagnosis Depression per history Alcohol Use Disorder per history with reported withdrawal seizures Medication recommendations per [facility]'s contracted psychiatrist Dr. Evelyne CANNON are as follows Continue home medications Impression\\plan: Patient is recommended for continued IVC. Patient continues to present altered mental status and responding to internal stimuli. Dr. Armando martinez as consulted to care management of this patient; attending physicians in agreement with recommendations and disposition.
--- NOTE | 2019-01-16 18:46 | ER Document Report ---
Doctor's Note Notes: 01/16/19 18:44 The patient was placed in restraints last night due to behavior issues. She was released out of restraints at 7:30 AM this morning. She has been sedated most of the day. She continues to hallucinate and be confused. She was complaining of [place]'s that were trying to steal her property. She did have a urinary tract infection that grew gram-negative rods, she is on Keflex for this. The sensitivity pattern should be available sometime tomorrow. She remains on IVC hold while placement is pursued.
[2019-01-17] MEDS: CEPHALEXIN 500 MG CAPSULE PO SCH ×3 (09:43→18:28)
[2019-01-17] MEDS: LEVETIRACETAM 500 MG TABLET PO SCH ×2 (09:43→18:28)
[2019-01-17] MEDS: ATORVASTATIN CALCIUM 10 MG TABLET PO SCH (09:43)
[2019-01-17] MEDS: VENLAFAXINE HCL 75 MG CAP.SR.24H PO SCH (09:43)
--- NOTE | 2019-01-17 12:32 | PSYCHOLOGICAL NOTE ---
Psych Note - Psych Note Date seen by psych provider: 01/17/19 Psych Note: Reason For Consult:Psychosis Consent Permissions:none provided Diagnosis Depression per history Alcohol Use Disorder per history with reported withdrawal seizures R/O Alcohol withdrawal delirium Medication recommendations per [facility]'s contracted psychiatrist Dr. Evelyne CANNON are as follows reduce home medication of Effexor to 75mg daily Haldol 2.5mg twice daily Cogentin 1mg daily Impression\plan: Patient is recommended for continued IVC. Patient continues to present altered mental status and responding to internal stimuli. Dr. Roberts was consulted to care management of this patient; attending physicians in a greement with recommendations and disposition.
[2019-01-17] MEDS ORDERED: VENLAFAXINE HCL 75 MG TABLET PO SCH (13:45)
[2019-01-17] MEDS: HALOPERIDOL 2 MG TABLET PO SCH ×2 (15:08→18:28)
[2019-01-17] MEDS: BENZTROPINE MESYLATE 1 MG TABLET PO SCH (15:08)
[2019-01-17] MEDS ORDERED: NICOTINE 21 MG/24 HR PATCH.TD24 TD ONE (16:34)
--- NOTE | 2019-01-17 19:22 | ER Document Report ---
Doctor's Note Notes: 01/17/19 19:15 Rounds: Chart reviewed and patient interviewed. Patient is ambulatory, though she appears to be a little bit unsteady on her feet. Sounds to be confused when carrying on a conversation with me. Patient has a history of PTSD and depression. Lab studies show a UTI with E. coli. She is been started on Kefl ex. Other labs are unremarkable. There is a question of whether this patient has a history of alcohol abuse and whether her symptoms may be due to alcohol withdrawal. Patient appears to be medically stable for transfer or discharge. Apolonia Engle MD
[2019-01-18] MEDS ORDERED: DIPHENHYDRAMINE HCL 50 MG CAPSULE PO ONE (02:51)
[2019-01-18 05:13] VITALS: BP 135/76
[2019-01-18] MEDS ORDERED: ACETAMINOPHEN 325 MG TABLET PO ONE (05:19)
[2019-01-18] MEDS ORDERED: VENLAFAXINE HCL 75 MG TABLET PO SCH (10:00)
[2019-01-18] MEDS: LEVETIRACETAM 500 MG TABLET PO SCH (10:23)
[2019-01-18] MEDS: ATORVASTATIN CALCIUM 10 MG TABLET PO SCH (10:23)
[2019-01-18] MEDS: CEPHALEXIN 500 MG CAPSULE PO SCH ×2 (10:24→14:30)
[2019-01-18] MEDS: BENZTROPINE MESYLATE 1 MG TABLET PO SCH (10:24)
[2019-01-18] MEDS: HALOPERIDOL 2 MG TABLET PO SCH (10:24)
--- NOTE | 2019-01-18 12:34 | PSYCHOLOGICAL NOTE ---
Psych Note - Psych Note Date seen by psych provider: 01/18/19 Time seen by psych provider: 08:27 - Chart review at 0827 and ongoing. Observation of patient's interactions with medical staff. Discussion with attending ED Physician. Psych Note: Presenting Problem: IVC, AMS, Active Psychosis, paranoia, Hx Alcoholism and TBI. Per boyfriend patient had been sober since August 2018. patient prescribed Keppra 750MG BID for seizures. Today patient continued to present with paranoia and psychosis. security rover hours she crawled under the sink in her room stating there are active bullets flying around, when redirected by nurse she then sat on her bed singing the star spangled banner. So paranoid about something being in/on/under/around her bed she had attending medical staff check everything and still was not satisfied. Continued placement efforts today. Patient accepted to [facility]. Diagnosis: Psychosis Depression per history Alcohol Use Disorder per history with reported withdrawal seizures R/O Alcohol Withdrawal Delirium Impression\plan: Recommendation to maintain IVC. Patient continued to present altered mental status and responding to internal stimuli. Patient accepted to [facility]. Will move forward with that placement. Consulted with Dr. Roberts regarding the management and care of patient. ED Physician in agreement with recommendations.
--- NOTE | 2019-01-18 14:37 | ER Document Report ---
Doctor's Note Notes: 01/18/19 14:35 This patient continues to be quite paranoid, winking and stating that things are confidential, telling me that she cannot say things out loud and that she could communicate with me better if she were wearing her sunglasses because then "they" would not be able to hear her or know what she was talking about. Patient has been accepted by [facility] for acute inpatient hospitalization. Patient has [facility] department at the bedside for transport. Patient is stable for transport. Patient will be transferred. GENERAL: Alert, paranoid, clean and well kempt. HEAD: Normocephalic, atraumatic EYES: Pupils equal, round and reactive to light, extraocular movements intact. ENT: Oral mucosa moist, tongue midline. NECK: Full range of motion, supple, trachea midline. LUNGS: no respiratory distress. EXTREMITIES: Moves all 4 extremities spontaneously, no edema. No cyanosis. NEUROLOGICAL: Alert and oriented x3, normal speech. PSYCH: Paranoid. Pleasant. SKIN: Warm, Dry, normal turgor, no rashes or lesions noted.
== END 2019-01-18 14:30 | disposition other institution (70) ==
LOC: ER 09:14
DX: F23 Brief psychotic disorder (principal); N39.0 Urinary tract infection, site not specified; R31.9 Hematuria, unspecified; R41.82 Altered mental status, unspecified; I25.10 Atherosclerotic heart disease of native coronary artery without angina pectoris; I25.2 Old myocardial infarction; I10 Essential (primary) hypertension; Z79.899 Other long term (current) drug therapy
CPT/HCPCS: 93005; 99285; 36415; 87086; 80307 ×4; 85025; 87088; 80053; 81001; 87186; 93010; J1630; J3490 ×2